=== PATIENT | female | born 1970 | race African-American/Black ===

== ENCOUNTER 2016-06-17 17:44 | Emergency (ER) | payer OTHER ==
--- NOTE | 2016-06-17 18:01 | ER Document Report ---
ED Medical Screen (RME) - General Stated Complaint: LEFT LEG PAIN,SHORTNESS OF BREATH Mode of Arrival: Ambulatory Information source: Patient Notes: Patient presents to the emergency department with left knee pain and shortness of breath. Patient also reports that her feet are swelling. Patient has a history of CAD stroke. Denies chest pain, patient is currently prescribed and taking anticoagulants. I have greeted and performed a rapid initial assessment of this patient. A comprehensive ED assessment and evaluation of the patient, analysis of test results and completion of the medical decision making process will be conducted by additional ED providers. TRAVEL OUTSIDE OF THE [place] IN LAST 30 DAYS: No - Related Data Allergies/Adverse Reactions: No Known Allergies Allergy (Verified 06/17/16 17:59) Past Medical History - Past Medical History Cardiac Medical History: Reports: Hx Hypercholesterolemia, Hx Hypertension
[2016-06-17 18:59] LABS: ABSOLUTE EOSINOPHILS # (AUTO) 0.4 10^3/uL (0.0-0.6); ABSOLUTE LYMPHOCYTES (AUTO) 3.2 10^3/uL (0.5-4.7); ABSOLUTE MONOCYTES (AUTO) 0.6 10^3/uL (0.1-1.4); ABSOLUTE NEUT (AUTO) 3.5 10^3/uL (1.7-8.2); BASOPHILS % (AUTO) 0.5 % (0-2); EOSINOPHILS % (AUTO) 4.7 % (0-6); HEMOGLOBIN 11.9 g/dL (12.0-15.5); HGB HCT DIFFERENCE -2.3; LYMPHOCYTES % (AUTO) 41.4 % (13-45); MEAN CORPUSCULAR HEMOGLOBIN 26.8 pg (27.0-33.4); MEAN CORPUSCULAR HGB CONC 31.3 g/dL (32.0-36.0); MEAN CORPUSCULAR VOLUME 86 fl (80-97); MONOCYTES % (AUTO) 7.7 % (3-13); RED BLOOD COUNT 4.45 10^6/uL (3.72-5.28); RED CELL DISTRIBUTION WIDTH 15.2 % (11.5-14.0); SEGMENTED NEUTROPHILS % (AUTO) 45.7 % (42-78); WHITE BLOOD COUNT 7.6 10^3/uL (4.0-10.5)
--- NOTE | 2016-06-17 19:18 | ER Document Report ---
ED General - General Chief Complaint: Knee Pain Stated Complaint: LEFT LEG PAIN,SHORTNESS OF BREATH Mode of Arrival: Ambulatory Information source: Patient Notes: Patient is a 46-year-old -[place] female who presents to the ER today for left knee pain since a fall 2 months ago going up her stairs. Patient states that she was having some knee pain prior to that but it has worsened since the fall. Patient states that when she tries to go up and down the stairs or get up from a sitting or lying position her knee pops. She denies any numbness, tingling that is out of the ordinary for her, she can bear weight on the knee. She denies that it never feels like it is going to give out on her. She also has some left ankle swelling without injury that she knows of but states that it is not painful. She also complains of shortness of breath 3 weeks. Patient states that she is a smoker and has been smoking more recently because she is out of her Wellbutrin and that she has been wheezing. She states "I know it's from the smoking." She denies any chest pain. TRAVEL OUTSIDE OF THE [place] IN LAST 30 DAYS: No - Related Data Allergies/Adverse Reactions: No Known Allergies Allergy (Verified 06/17/16 17:59) Past Medical History - General Information source: Patient - Social History Smoking Status: Current Every Day Smoker Chew tobacco use (# tins/day): No Frequency of alcohol use: Social Drug Abuse: None Family History: Reviewed & Not Pertinent Patient has suicidal ideation: No Patient has homicidal ideation: No - Past Medical History Cardiac Medical History: Reports: Hx Hypercholesterolemia, Hx Hypertension Renal/ Medical History: Denies: Hx Peritoneal Dialysis Review of Systems - Review of Systems Constitutional: No symptoms reported EENT: No symptoms reported Cardiovascular: No symptoms reported Respiratory: See HPI Gastrointestinal: No symptoms reported Genitourinary: No symptoms reported Female Genitourinary: No symptoms reported Musculoskeletal: See HPI Skin: No symptoms reported Hematologic/Lymphatic: No symptoms reported Neurological/Psychological: No symptoms reported Physical Exam - Notes Notes: PHYSICAL EXAMINATION: GENERAL: Well-appearing, eating sunflower seeds, joking and laughing, and in no acute distress. HEAD: Atraumatic, normocephalic. EYES: Pupils equal round and reactive to light, extraocular movements intact, sclera anicteric, conjunctiva are normal. ENT: Airway patent NECK: Normal range of motion, supple without lymphadenopathy LUNGS: Mild expiratory wheezes in lower lung field only, no rales or rhonchi. HEART: Regular rate and rhythm without murmurs EXTREMITIES: Normal range of motion with laxity upon valgus stress, tender to palpation over medial/posterior left knee, no Oshea cyst noted, no calf tenderness, slight edema surrounding lateral malleolus, no tenderness to palpation, no ecchymosis, no pitting edema. No cyanosis. NEUROLOGICAL: Cranial nerves grossly intact. Normal sensory/motor exams. PSYCH: Normal mood, normal affect. SKIN: Warm, Dry, normal turgor, no rashes or lesions noted Course - Re-evaluation Re-evalutation: 06/17/16 21:07 Patient feels better after breathing treatment given to her here in the emergency department. Patient's vitals are all within normal limits. Knee x- ray and ankle x-ray revealed no acute pathology. Patient was placed in a knee immobilizer brace and offered crutches for possible internal knee injury or sprain. Patient to follow-up with orthopedics and primary care provider about her symptoms today. She was sent home from here with an albuterol inhaler. 06/17/16 21:10 - Laboratory Result Diagrams: 06/17/16 18:27 06/17/16 18:27 Laboratory results interpreted by me: 06/17/16 06/17/16 18:27 18:27 Hgb 11.9 L MCH 26.8 L MCHC 31.3 L RDW 15.2 H Potassium 3.2 L AST 63 H ALT 71 H Discharge - Discharge Clinical Impression: Wheezing, Shortness of breath, Smoking Left knee pain Qualifiers: Chronicity: unspecified Qualified Code(s): M25.562 - Pain in left knee Condition: Stable Disposition: HOME, SELF-CARE Instructions: Ice & Elevation ([facility]), Suspected Internal Knee Injury ([facility]), Knee Immobilizing Splint ([facility]), Stop Smoking ([facility]) Additional Instructions: Return immediately for any new or worsening symptoms. Follow up with orthopedics/primary care provider, call tomorrow to make followup appointment. Prescriptions: Naproxen 500 mg PO BID #30 tablet Forms: Smoking Cessation Education, Return to Work Referrals: JAN SCHUSTER MD [ACTIVE STAFF] - Follow up as needed
[2016-06-17 19:20] LABS: ALANINE AMINOTRANSFERASE 71 U/L (9-52); ALBUMIN 4.2 g/dL (3.5-5.0); ALKALINE PHOSPHATASE 86 U/L (38-126); ANION GAP 15 (5-19); ASPARTATE AMINO TRANSFERASE 63 U/L (14-36); BILIRUBIN,TOTAL 0.5 mg/dL (0.2-1.3); BLOOD UREA NITROGEN 17 mg/dL (7-20); CALCIUM 9.8 mg/dL (8.4-10.2); CARBON DIOXIDE 26 mmol/L (22-30); CHLORIDE 102 mmol/L (98-107); CREATININE RESULT 0.73 mg/dL (0.52-1.25); GLUCOSE 94 mg/dL (75-110); POTASSIUM 3.2 mmol/L (3.6-5.0); SODIUM 143.1 mmol/L (137-145); TOTAL PROTEIN 7.4 g/dL (6.3-8.2)
[2016-06-17] MEDS ORDERED: ALBUTEROL SULFATE 0.083% NEB 2.5 MG/3 ML AMPUL NEB ONE (19:54)
[2016-06-17] MEDS ORDERED: POTASSIUM CHLORIDE 10 MEQ TABLET.SA PO ONE (20:43)
[2016-06-17] MEDS ORDERED: ALBUTEROL SULFATE HFA (90 MCG/PUFF) 8 GM MDI (1 MDI/ER DISP) IH PRN (21:10)
[2016-06-17 23:18] VITALS: BP 155/99
--- NOTE | 2016-06-18 08:12 | EKG REPORT ---
SEVERITY:- ABNORMAL ECG - SINUS RHYTHM FIRST DEGREE AV BLOCK PROBABLE ANTEROSEPTAL INFARCT, OLD BORDERLINE T WAVE ABNORMALITIES : Confirmed by: Wicho Espino MD 18-Jun-2016 08:10:47
== END 2016-06-17 23:18 | disposition home or self-care (01) ==
LOC: ER 17:44
DX: R06.2 Wheezing (principal); R06.02 Shortness of breath; M25.562 Pain in left knee; W19.XXXA Unspecified fall, initial encounter; Z79.899 Other long term (current) drug therapy; F17.210 Nicotine dependence, cigarettes, uncomplicated; E78.00 Pure hypercholesterolemia, unspecified
CPT/HCPCS: 93005; 94640; 99284; 36415; 85025; 80053; 83880; 73610; 71020; 93010; L1830; J3490